=== PATIENT | female | born 2000 | race Caucasian/White ===

== ENCOUNTER 2022-09-08 05:57 | Emergency (ER) | payer MEDICAID ==
[~2022-09-08] VITALS: Ht 167.6 cm; Wt 72.6 kg
[2022-09-08 06:15] VITALS: BP_SYST 129
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
[2022-09-08] MEDS ORDERED: ACETAMINOPHEN 500 MG TABLET PO ONE (06:30)
--- NOTE | 2022-09-08 06:30 | NUR ---
Pt to CT, ambulatory with steady gait.
--- NOTE | 2022-09-08 06:40 | NUR ---
Pt returns from CT.
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
--- NOTE | 2022-09-08 09:29 | NUR ---
Patient given written and verbal discharge instructions and verbalizes understanding. ER MD discussed with patient the results and treatment provided. Patient in stable condition. ID arm band removed.No Rx given. Patient educated on pain management and to follow up with PMD. Pain Scale 0/10. Opportunity for questions provided and answered. Medication side effect fact sheet provided.
[2022-09-08 09:30] VITALS: BP_SYST 129
== END 2022-09-08 09:30 ==
LOC: SED 05:57
DX: S09.90XA Unspecified injury of head, initial encounter (principal); R42 Dizziness and giddiness; R11.0 Nausea; Z79.899 Other long term (current) drug therapy; V89.2XXA Person injured in unspecified motor-vehicle accident, traffic, initial encounter; Y93.89 Activity, other specified; Y92.89 Other specified places as the place of occurrence of the external cause; Y99.8 Other external cause status
CPT/HCPCS: 70450-TC; 76376; 81025; 99284